=== PATIENT | female | born 1960 | race Caucasian/White ===

== ENCOUNTER 2016-12-07 13:25 | Emergency (ER) | payer BC | END 2016-12-07 15:01 | disposition home or self-care (01) | LOC: D.ER 13:25 | DX: S91.312A Laceration without foreign body, left foot, initial encounter (principal); X58.XXXA Exposure to other specified factors, initial encounter; S92.322A Displaced fracture of second metatarsal bone, left foot, initial encounter for closed fracture; Z23 Encounter for immunization ==

== ENCOUNTER → 2017-05-06 13:53 | Outpatient (CLI) | payer BC | END | disposition home or self-care (01) | LOC: D.MAMMO 04-27 11:30 | DX: Z12.31 Encounter for screening mammogram for malignant neoplasm of breast (principal) ==

== ENCOUNTER 2019-05-20 19:00 | Outpatient (CLI) | payer BC | END 2019-05-20 23:59 | disposition home or self-care (01) | LOC: D.MAMMO 19:00 | PROVIDERS: ATTEND Family Medicine | DX: Z12.31 Encounter for screening mammogram for malignant neoplasm of breast (principal) ==

== ENCOUNTER → 2019-08-15 13:35 | Outpatient (CLI) | payer BC | END | disposition home or self-care (01) | LOC: D.RAD 13:35 | PROVIDERS: ATTEND Family Medicine | DX: J40 Bronchitis, not specified as acute or chronic (principal); J18.9 Pneumonia, unspecified organism ==